=== PATIENT | female | born 1975 | race Hispanic/Latino ===

== ENCOUNTER 2017-12-12 04:12 | Emergency (ER) | payer MEDICAID ==
[~2017-12-12 04:12] MED LIST: HYDR-4060 PO; LEVO112T7 PO
[2017-12-12] MEDS ORDERED: IBUPROFEN 600 MG TABLET ONE (04:29)
[2017-12-12] MEDS ORDERED: TETANUS/DIPHTHERIA TOXOID [ADULT] 0.5 ML VIAL IM ONE (04:30)
== END 2017-12-12 05:40 | disposition home or self-care (01) ==
LOC: EDH 04:16
DX: S50.02XA Contusion of left elbow, initial encounter (principal); S09.90XA Unspecified injury of head, initial encounter; E07.9 Disorder of thyroid, unspecified; Z72.0 Tobacco use; Z98.890 Other specified postprocedural states; V09.9XXA Pedestrian injured in unspecified transport accident, initial encounter; Y93.89 Activity, other specified; Y92.89 Other specified places as the place of occurrence of the external cause; Y99.8 Other external cause status
CPT/HCPCS: 70450; 71045; 72125; 73080; 90471; 90714

== ENCOUNTER 2019-03-23 14:44 | Emergency (ER) | payer MEDICAID ==
[2019-03-23] MEDS ORDERED: FAMOTIDINE/PF 20 MG/2 ML VIAL IV ONE (15:28)
[2019-03-23] MEDS ORDERED: DiphenhydrAMINE HCL 50 MG/ML VIAL ONE (15:28)
== END 2019-03-23 16:18 | disposition home or self-care (01) ==
LOC: EDH 14:44
DX: T63.441A Toxic effect of venom of bees, accidental (unintentional), initial encounter (principal); M79.89 Other specified soft tissue disorders; L53.9 Erythematous condition, unspecified; R11.0 Nausea; F41.9 Anxiety disorder, unspecified; E07.9 Disorder of thyroid, unspecified; Z79.899 Other long term (current) drug therapy; Z98.890 Other specified postprocedural states; Y92.89 Other specified places as the place of occurrence of the external cause
CPT/HCPCS: 81025; 96374; 96375; 99284; J1200; J3490